=== PATIENT | female | born 1950 | race Caucasian/White ===

== ENCOUNTER 2019-02-25 09:17 | Emergency (ER) | payer OTHER, SELFPAY ==
[2019-02-25] VITALS (10 sets, daily range): BP systolic 99–152; BP diastolic 64–101; PULSE 65–80; RESP 12–20; TEMP 36.8; O2SAT 89–100
--- NOTE | 2019-02-25 09:33 | DI.RAD.S_ITS ---
PROCEDURE: XR WRIST LT MIN 3V INDICATIONS: injury deformity TECHNIQUE: 3 views of the wrist were acquired. COMPARISON: None. FINDINGS: Bones: There is a transverse comminuted fracture of the distal radial metadiaphysis. There is associated impaction and dorsal angulation. Fracture extends to the distal radioulnar joint which appears widened. There is also suspected extension to the radiocarpal joint. There is a linear lucency in the scaphoid waist suspicious for a fracture. Moderate degeneration demonstrated at the 1st carpometacarpal and triscaphe articulations. Soft tissues: There is periarticular soft tissue swelling. No suspicious soft tissue calcifications. IMPRESSION: 1. Comminuted impacted and angulated fracture of the distal radius as described with extension to the distal radioulnar joint as well suspected extension to the radiocarpal joint. 2. Suspected scaphoid waist fracture. Recommend dedicated scaphoid view when clinically feasible. Dictated by: Reginald Delaney M.D. on 02/25/2019 at 10:24 Approved by: Reginald Delaney M.D. on 02/25/2019 at 10:29
[2019-02-25] MEDS: ONDANSETRON 4 MG/2 ML INJ IV (09:41)
[2019-02-25] MEDS: MORPHINE 2 MG/ML INJ IV (09:42)
--- NOTE | 2019-02-25 09:55 | ED.UPPEXIN ---
HPI - Extremity Injury (Upper) General Chief Complaint: Extremity Injury, Upper Stated Complaint: broken left wrist Time Seen by Provider: 02/25/19 09:25 Source: patient Mode of arrival: Ambulatory Limitations: no limitations History of Present Illness HPI narrative: Patient comes emergency department complaining of left wrist pain after a fall today. She states that her legs began to cramp up, as sometimes happens, and she lost her balance, striking her wrist on a table, she thinks. The patient states she bumped her head on a table leg, but does not think that it was a hard hit. The patient's states it was more like a ?glancing blow?. The patient states that she is having left wrist pain and has noticed deformity. 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 Patient denies any other injuries. No injuries to her legs as far she can tell. No rib pain. No spinal pain that is new. No headache. No other complaints at this time. Related Data Previous Rx's Medication Instructions Recorded hydrocodone-acetaminophen 1 tab PO Q4H PRN #20 tab 02/25/19 Allergies Allergy/AdvReac Type Severity Reaction Status Date / Time Penicillins Allergy Unknown Verified 02/25/19 09:27 Review of Systems Constitutional Constitutional: Denies chills, Denies fatigue, Denies fever(s), Denies frequent falls, Denies lethargy and Denies weakness Eyes Eyes: Denies change in vision, Denies eye discharge, Denies irritation and Denies loss of vision ENT Ears, Nose, Mouth, and Throat: Denies change in voice, Denies dizziness, Denies neck pain, Denies sore throat and Denies throat swelling Cardiovascular Cardiovascular: Denies chest pain, Denies irregular heart rhythm, Denies lightheadedness, Denies palpitations, Denies dyspnea, Denies dyspnea on exertion and Denies orthopnea Respiratory Respiratory: Denies cough, Denies dyspnea, Denies dyspnea on exertion and Denies wheezing Gastrointestinal Gastrointestinal: Denies abdominal pain, Denies change in bowel habits, Denies diarrhea, Denies nausea and Denies vomiting Genitourinary Genitourinary: Denies hematuria, Denies flank pain, Denies urinary incontinence and Denies urinary urgency Musculoskeletal Musculoskeletal: Denies back pain, Denies muscle weakness, Denies neck pain, Denies numbness and Denies tingling Comments: Wrist pain Integumentary/Breasts Skin/Breast: Denies pruritus, Denies erythema, Denies rash and Denies wounds Neurologic Neurologic: Denies behavioral changes, Denies confusion, Denies dizziness, Denies frequent falls, Denies loss of vision, Denies numbness, Denies tingling and Denies weakness Psychiatric Psychiatric: Denies anxiety, Denies behavioral changes, Denies confusion, Denies depression, Denies homicidal ideation and Denies suicidal ideation Endocrine Endocrine: Denies fatigue, Denies flushing and Denies palpitations Hematologic/Lymphatic Hematologic/Lymphatic: Denies easy bruising Allergic/Immunologic Allergic/Immunologic: Denies urticaria, Denies throat swelling and Denies wheezing Patient History Medical History Arthritis (Acute) Social History Smoking Status: Never smoker Smoking Status: Never smoker alcohol intake frequency: 0-2 drinks per day Substance Use Type: does not use Exam Initial Vital Signs Initial Vital Signs: Vital Signs Temperature 98.2 F 02/25/19 09:20 Pulse Rate 65 02/25/19 09:20 Respiratory Rate 18 02/25/19 09:20 Blood Pressure 152/82 H 02/25/19 09:20 Pulse Oximetry 99 02/25/19 09:20 Const General: cooperative and well developed Nutritional Appearance: well nourished Orientation: alert, awake, oriented x3 and not confused [facility] Head: normocephalic and atraumatic Ears: external ears normal and TM's normal bilaterally Nose: external nose normal and No nasal discharge Face and sinus: sinuses nontender, face symmetric, no sinus tenderness and No dry mucous membranes Mouth: oral mucosae normal and moist mucous membranes Teeth and gingiva: dentition normal Throat: tonsils normal and uvula midline Eyes General: appearance normal, both eyes and all related structures Eyelids: eyelids normal Conjunctivae: conjunctivae normal Sclera: sclerae normal Pupils: PERRL EOM: EOM intact bilaterally Neck Neck: normal visual inspection, trachea midline, No lymphadenopathy, No midline deformity and No JVD Lymphatic: No lymphedema Chest Chest: normal inspection of the chest Resp Effort & Inspection: normal respiratory effort, able to speak in complete sentences, no respiratory distress and no use of accessory muscles Auscultation: clear to auscultation bilaterally, no rales, no rhonchi and no wheezes Cardio Rate: regular rate Rhythm: regular rhythm Heart Sounds: no click, no gallops, no murmurs and no rubs Pulses: normal peripheral pulses Back/Spine/Pelvis Back: No CVA tenderness Cervical Spine: cervical ROM normal and No pain with cervical ROM Thoracic/Lumbar Spine: thoracic and lumbar spine normal to inspection Skin General: no rashes or lesions noted, No jaundice and No petechiae Neuro General: alert, oriented x3, gait normal and no focal motor deficits Cranial Nerves: CN's II-XI intact bilaterally Cognition: normal cognition Speech: speech normal Motor: muscle tone normal throughout Sensory Exam: no sensory deficits noted Other: Intact sensation in distal left upper extremity. Extrem Other: The patient has deformity of her left wrist with intact pulses. Psych Appearance: well kempt Mental Status: mental status grossly normal Attitude: cooperative Thought Content: normal and suicidality Judgment: judgment good Procedures Orthopedic Fracture Reduction Fracture #1: Time Out Performed: Yes Side: left Fracture Reduction Location: radius Analgesia: procedural sedation Technique: direct manipulation and traction/counter-traction Post Reduction X-rays Demonstrate: anatomical reduction Post-reduction neuro exam: intact Post-reduction vascular exam: intact Splint Applied: Yes Patient Tolerated Procedure: Well and No complications Procedural Sedation Patient Age: Patient is 5yrs or older Consent signed: Yes Time out performed: Yes Indication: fracture/dislocation reduction ASA Class: II Preparation: tool and die repair applied, pulse oximeter, capnometry used, supplemental O2 applied, suction/airway equipment at bedside and IV secured Midazolam: IV Midazolam dose (mg): 4 ED Sedation Level: Moderate (Concious) Patient Tolerated Procedure: Well and No complications Complications: none Course Course Course Narrative: The patient was worked up with an x-ray of the left wrist, which showed a displaced distal radius fracture. The patient had been given morphine 2 mg and I did discuss with her and her that before splinting, the fracture should be reduced, based on the degree of displacement. I did recommend doing this with procedural sedation with Versed, to which the patient and was agreeable. The patient did sign informed consent for this. I also discussed prior to the sedation that the fracture may need to be repaired with surgery. The patient and her are from [place] and are only visiting for a week, and they have stated that they wish to have all further follow-up performed in [place]. I've discussed with them the importance of expedited follow-up, as I would normally recommend follow-up within a week for this sort of fracture if the patient was following up locally. The fracture was reduced fairly successfully with the patient sedated, as above. The patient reduction was followed up with a mg of Dilaudid which brought the patient fairly good pain relief. She was placed in a sugar-tong splint and postreduction x-ray was performed. The patient was given a CD with the images, as well as all of the records from today's visit. I've re-emphasized the importance of expedient follow-up, preferably within the week, to either schedule surgery or to be sure that the fracture is reduced to the satisfaction of the relationship specialist. Orders Ordered: ED Orders 02/25/19 09:33 XR wrist LT min 3V Stat 02/25/19 12:30 XR wrist LT 2V Stat Discontinued Medications Midazolam HCl (Versed) 4 mg IV NOW ONE Stop: 02/25/19 12:04 Last Admin: 02/25/19 12:14 Dose: 4 mg Documented by: MANDA Morphine Sulfate (Morphine) 2 mg IV NOW ONE Stop: 02/25/19 09:39 Last Admin: 02/25/19 09:42 Dose: 2 mg Documented by: KAYLIE Ondansetron HCl (Zofran) 4 mg IV NOW ONE Stop: 02/25/19 09:39 Last Admin: 02/25/19 09:41 Dose: 4 mg Documented by: KAYLIE Vital Signs Vital signs: Vital Signs - 8 hr 02/25/19 09:20 02/25/19 09:48 02/25/19 12:10 Temperature 98.2 F Pulse Rate 65 69 Pulse Rate [Left Radial] 80 Respiratory Rate 18 16 Blood Pressure 152/82 H Blood Pressure [Right Arm] 128/101 H Pulse Oximetry 99 100 02/25/19 12:15 02/25/19 12:25 02/25/19 12:35 Temperature Pulse Rate 68 68 66 Pulse Rate [Left Radial] Respiratory Rate 14 14 16 Blood Pressure Blood Pressure [Right Arm] 125/71 146/78 H 110/67 Pulse Oximetry 99 96 94 02/25/19 12:44 02/25/19 12:45 12/24/19 13:39 Temperature Pulse Rate 66 73 68 Pulse Rate [Left Radial] Respiratory Rate 14 14 12 Blood Pressure Blood Pressure [Right Arm] 99/64 116/69 123/68 Pulse Oximetry 93 96 89 L MDM - Extremity Injury (Upper) Medical Records Attestation: I reviewed the patient's medical records. Lab Data Labs: Point of Care Testing Test Results Not applicable Imaging Data Left wrist x-ray: Radiologist's Impression: PROCEDURE: XR WRIST LT MIN 3V INDICATIONS: injury deformity TECHNIQUE: 3 views of the wrist were acquired. COMPARISON: None. FINDINGS: Bones: There is a transverse comminuted fracture of the distal radial metadiaphysis. There is associated impaction and dorsal angulation. Fracture extends to the distal radioulnar joint which appears widened. There is also suspected extension to the radiocarpal joint. There is a linear lucency in the scaphoid waist suspicious for a fracture. Moderate degeneration demonstrated at the 1st carpometacarpal and triscaphe articulations. Soft tissues: There is periarticular soft tissue swelling. No suspicious soft tissue calcifications. IMPRESSION: 1. Comminuted impacted and angulated fracture of the distal radius as described with extension to the distal radioulnar joint as well suspected extension to the radiocarpal joint. 2. Suspected scaphoid waist fracture. Recommend dedicated scaphoid view when clinically feasible. Dictated by: Reginald Delaney M.D. on 02/25/2019 at 10:24 Approved by: Reginald Delaney M.D. on 02/25/2019 at 10:29 PROCEDURE: XR WRIST LT 2V INDICATIONS: post-reduction of fracture TECHNIQUE: 3 views of the wrist were acquired. COMPARISON: [facility], , XR WRIST LT MIN 3V, 02/25/2019, 9:50. FINDINGS: Bones: Comminuted displaced intra-articular distal radial fracture is redemonstrated. There is slightly increased anatomic alignment when compared with the prior study. Radial styloid fracture is redemonstrated. Soft tissues: No suspicious soft tissue calcifications. IMPRESSION: Partial reduction of the comminuted distal radial fracture. Dictated by: Leslie Zapata M.D. on 02/25/2019 at 11:53 Approved by: Leslie Zapata M.D. on 02/25/2019 at 11:54 Discharge Plan Departure Patient Disposition: Home Clinical Impression: Distal radius fracture, left Qualifiers: Encounter type: initial encounter Fracture type: closed Fracture morphology: unspecified fracture morphology Qualified Code(s): S52.502A - Unspecified fracture of the lower end of left radius, initial encounter for closed fracture Instructions: DI for Distal Radius Fracture, DI for Moderate Sedation Activity Restrictions/Additional Instructions: Your x-ray showed a fracture of the end of the radius, the larger of your two forearm bones. The fractured fragment was pulled back into better alignment before splinting. However, it is very important that you follow-up with orthopedics as soon as possible. You have opted to do this in [place] where you live. Generally, we would want you to follow up within the week if you were following up locally, and it is recommended that you follow-up within that time frame and candidate if at all possible. Please call the orthopedic office as soon as possible to set up this follow-up, so that you can be seen and evaluated to see whether you not you need surgery before much healing has occurred. Prescriptions: New hydrocodone-acetaminophen 5-325 mg tablet 1 tab PO Q4H PRN (Reason: pain) Qty: 20 RF: 0 Referrals: Lyndsey Freitas MD [Physician] -
[2019-02-25] MEDS: MIDAZOLAM 5 MG/ML VIAL 4 MG IV (12:14)
[2019-02-25] MEDS: HYDROMORPHONE 1 MG INJ (12:26)
--- NOTE | 2019-02-25 12:30 | DI.RAD.S_ITS ---
PROCEDURE: XR WRIST LT 2V INDICATIONS: post-reduction of fracture TECHNIQUE: 3 views of the wrist were acquired. COMPARISON: [facility], CR, XR WRIST LT MIN 3V, 02/25/2019, 9:50. FINDINGS: Bones: Comminuted displaced intra-articular distal radial fracture is redemonstrated. There is slightly increased anatomic alignment when compared with the prior study. Radial styloid fracture is redemonstrated. Soft tissues: No suspicious soft tissue calcifications. IMPRESSION: Partial reduction of the comminuted distal radial fracture. Dictated by: Leslie Zapata M.D. on 02/25/2019 at 11:53 Approved by: Leslie Zapata M.D. on 02/25/2019 at 11:54
== END 2019-02-25 14:15 | disposition home or self-care (01) ==
PROVIDERS: Emergency Provider Emergency Medicine
DX: S52.502A Unspecified fracture of the lower end of left radius, initial encounter for closed fracture (principal); W18.30XA Fall on same level, unspecified, initial encounter
CPT/HCPCS: 25565; 36415; 73100; 73110; 94770; 99152; 99284; 99285; J1170; J2250; J2270; J2405